=== PATIENT | male | born 1960 | race Caucasian/White ===

== ENCOUNTER 2022-06-27 20:43 | Emergency (ER) | payer OTHER ==
[2022-06-27] MEDS ORDERED: SODIUM CHLORIDE 0.9% 1,000 ML IV STA ×2 (21:13→23:10)
[2022-06-27 21:36] LABS: BASOPHILS % (AUTO) 0.5 %; EOSINOPHILS % (AUTO) 0.1 %; HCT - HEMATOCRIT 39.5 % (42.0-52.0); HGB - HEMOGLOBIN 12.7 g/dL (14.0-18.0); LYMPHOCYTES # (AUTO) 0.3 10^3/uL (1.5-3.5); LYMPHOCYTES % (AUTO) 3.7 %; MEAN CORPUSCULAR HEMOGLOBIN 28.5 pg (27.0-31.0); MEAN CORPUSCULAR HGB CONC 32.2 g/dL (32.0-36.0); MEAN CORPUSCULAR VOLUME 88.6 fL (80.0-94.0); MEAN PLATELET VOLUME 9.5 fL (7.4-11.4); MONOCYTES # (AUTO) 0.4 10^3/uL (0.0-1.0); NEUTROPHILS # (AUTO) 7.1 10^3/uL (1.5-6.6); NEUTROPHILS % (AUTO) 90.4 %; PLT - PLATELET COUNT 159 10^3/uL (130-450); RED BLOOD COUNT 4.46 10^6/uL (4.70-6.10); RED CELL DISTRIBUTION WIDTH 17.2 % (12.0-15.0); WHITE BLOOD COUNT 7.8 x10^3/uL (4.8-10.8)
[2022-06-27 21:53] LABS: ALBUMIN 3.8 g/dL (3.2-5.5); ALBUMIN/GLOBULIN RATIO 1.2 (1.0-2.2); BILIRUBIN,TOTAL 3.2 mg/dL (0.2-1.0); CALCIUM 8.8 mg/dL (8.5-10.3); POTASSIUM 3.8 mmol/L (3.5-5.0)
[2022-06-27] MEDS ORDERED: ONDANSETRON 4 MG/2 ML VIAL IVP STA (22:27)
[2022-06-27] MEDS ORDERED: MORPHINE 2 MG/ML CARPUJECT IVP STA ×2 (22:27→23:10)
[2022-06-27] MEDS ORDERED: ONDANSETRON 4 MG/2 ML VIAL ONE (22:31)
[2022-06-27] MEDS ORDERED: ONDANSETRON ODT 4 MG Prepack 2 TL PRN (23:58)
[2022-06-28] MEDS ORDERED: HYDROmorphone 1 MG/ML CARPUJECT IVP STA (00:15)
--- NOTE | 2022-06-28 00:45 | ED Physician Documentation ---
PD HPI NVD - Stated complaint Stated Complaint: VOMITING FROM CHEMO - Chief complaint Chief Complaint: Abd Pain - History obtained from History obtained from: Patient - Additonal information Additional information: Patient is a 62-year-old male with a history of metastatic pancreatic cancer presenting for evaluation of nausea and vomiting and epigastric abdominal pain for the past 1 day. Patient last had a chemo treatment on Tuesday. Per his he has had prior treatment with chemotherapy, radiation as well as a Whipple procedure.However he did have a 6-week break from chemo and resumed on Tuesday. He does have Zofran and another antiemetic at home but does not have any dissolvable and was not able to keep these down today. He does take oral morphine at home for pain and also has not been able to keep this down today. He reports having epigastric abdominal pain. He denies NSAID use or alcohol use. He reports that his emesis is primarily been liquids but the last episode may have been coffee-ground. He denies a history of ulcers.He denies abnormal colored stools. Review of Systems Constitutional: denies: Fever Cardiac: denies: Chest pain / pressure Respiratory: denies: Dyspnea GI: reports: Abdominal Pain, Nausea, Vomiting : denies: Dysuria Neurologic: denies: Headache PD PAST MEDICAL HISTORY - Allergies Allergies/Adverse Reactions: Allergies Allergy/AdvReac Type Severity Reaction Status Date / Time Sulfa (Sulfonamide AdvReac Unknown Verified 06/27/22 21:00 Antibiotics) PD ED PE NORMAL - General General: Alert and oriented X 3, No acute distress, Well developed/nourished - HEENT HEENT: Atraumatic - Neck Neck: Supple, no meningeal sign - Cardiac Cardiac: RRR, No murmur - Respiratory Respiratory: No respiratory distress, Clear bilaterally - Abdomen Abdomen: Normal bowel sounds, Soft, Non distended, Other (Mild epigastric tenderness to palpation, well-healed midline incision) - Derm Derm: Warm and dry - Neuro Neuro: Normal speech Results - Vitals Vitals: Vital Signs - 24 hr 06/27/22 06/27/22 06/27/22 20:54 22:38 23:22 Temperature 36.9 C Heart Rate 53 L 62 54 L Respiratory 22 14 19 Rate Blood Pressure 157/85 H 171/85 H 182/85 H O2 Saturation 98 99 99 05/06/28/22 06/28/22 00:00 00:25 00:45 Temperature Heart Rate 52 L 51 L 52 L Respiratory 17 20 18 Rate Blood Pressure 179/80 H 181/88 H 174/85 H O2 Saturation 98 98 96 06/28/22 00:55 Temperature Heart Rate 52 L Respiratory 17 Rate Blood Pressure 174/85 H O2 Saturation 97 Oxygen O2 Source Room air - Labs Labs: Laboratory Tests 06/27/22 06/27/22 21:29 21:29 WBC 7.8 RBC 4.46 L Hgb 12.7 L Hct 39.5 L MCV 88.6 MCH 28.5 MCHC 32.2 RDW 17.2 H Plt Count 159 MPV 9.5 Neut # (Auto) 7.1 H Lymph # (Auto) 0.3 L [place] # (Auto) 0.4 Eos # (Auto) 0.0 Baso # (Auto) 0.0 Absolute Nucleated RBC 0.00 Nucleated RBC % 0.0 Sodium 140 Potassium 3.8 Chloride 97 L Carbon Dioxide 24 Anion Gap 19.0 H BUN 17 Creatinine 1.0 Estimated GFR (MDRD) 75 L Glucose 249 H Calcium 8.8 Total Bilirubin 3.2 H AST 487 H ALT 451 H Alkaline Phosphatase 204 H Total Protein 7.0 Albumin 3.8 Globulin 3.2 Albumin/Globulin Ratio 1.2 Lipase 20 L PD Medical Decision Making - ED course Complexity details: reviewed results, re-evaluated patient, d/w patient, d/w family ED course: Patient is a 62-year-old male with a history of metastatic pancreatic cancer presenting for evaluation of nausea and vomiting and epigastric abdominal pain. He recently had a chemo session on Tuesday. He does have mild epigastric tenderness. He does report having 1 episode of coffee-ground emesis that was the most recent episode of emesis. It is only happened once and he has not had any further episodes although he does continue to feel nauseous.His vital signs are stable. CBC and chemistries are reviewed. He does have an elevated bilirubin and elevated LFTs. He was told at his appointment on Tuesday that his LFTs have been increasing.I do not have access to any prior labs through our system.We discussed option of imaging Given his pain and abnormal labsHowever he states that he would not want any procedures or surgeries done.PatientHe also would not want an upper endoscopy to evaluate for possible bleeding. And his who is also at the bedside with him they are looking for nausea control and pain control as he was not able to take his pain medication tonight.He was given IV fluids, IV Zofran and IV morphine as well as a dose of IV Dilaudid with improvement in his symptoms. He is very eager to go home tonight and does not w ant further testing or work-up. He plans to follow-up with his oncologist through [facility]. He and his declined a prescription for ODT Zofran but I did give them a prepack. They state they get their medications through [facility] so would prefer to have it ordered through them. Again I did offer to send a prescription to their pharmacy of choice which they declined.Repeat abdominal exam is benign. Patient was counseled on concerning symptoms to return for and is aware of the need for close follow-up. Departure - Departure Disposition: 01 Home, Self Care Clinical Impression: Epigastric abdominal pain, Nausea & vomiting, Elevated bilirubin, Elevated LFTs Condition: Stable Instructions: ED Nausea Vomiting, ED Epigastric Pain [facility] Comments: Please have close follow-up with your oncologist and [facility] physicians regarding your symptoms tonight.As you have declined a prescription for the ODT Zofran I would recommend you reach out to your oncologist to see if they can prescribe this to you as it may be more helpful than the medications that you are already prescribed. If you develop any worsening symptoms please return to the emergency department. Discharge Date/Time: 06/28/22 00:57
[2022-06-28 00:46] VITALS: BP 174/85
== END 2022-06-28 00:57 | disposition home or self-care (01) ==
LOC: ED 20:43
DX: R11.2 Nausea with vomiting, unspecified (principal); R10.13 Epigastric pain; R74.01 Elevation of levels of liver transaminase levels; E80.6 Other disorders of bilirubin metabolism; C25.9 Malignant neoplasm of pancreas, unspecified; C79.9 Secondary malignant neoplasm of unspecified site; Z79.899 Other long term (current) drug therapy
CPT/HCPCS: 36415; 80053; 83690; 85025; 96374; 96375; 99284; J1170